=== PATIENT | female | born 1935 | race Caucasian/White ===

== ENCOUNTER → 2017-05-15 | Outpatient (CLI) | payer MEDICARE ==
[~2017-05-15] MED LIST: ACET325 PO; ADVIL 200 MG PO; ALLO100 PO; ASPI325 PO; ATOR40TA PO; CIPR500 PO; COLCHICINE0.6 MG; COLCHICINE0.6 MG PO; DIAZIDE; DIPH50; DIPH50 PO; DOCU100 PO; FAMO10 PO; Flagyl250 MG PO; GLIM2 PO; GLYB2.5 PO; HYDACE7.5; IBUP200 PO; LEVFLO500 PO; LOSA25; Lovastatin10 MG; MELO7.5; METO100; METO50 PO; Micro-K10 MEQ PO; Micro-K8 MEQ; OMEPRAZOLE MAGN20 MG PO; PROM25 PO; Percocet 5-3251 EACH PO; TAMS.4ER PO; TRAACE; TRAM50 PO; TRIHYD253A PO; ZOLP5 PO; ZOLP6.25; [UNRECOGNIZED DRUG - OTHER]
== END | disposition home or self-care (01) ==
LOC: LAB SHORT 17:04
DX: R30.9 Painful micturition, unspecified (principal)
CPT/HCPCS: 87077; 87086; 87186

== ENCOUNTER 2017-06-24 20:29 | Emergency (ER) | payer MEDICARE ==
[~2017-06-24] VITALS: Ht 160 cm; Wt 91.6 kg
[~2017-06-24 20:29] MED LIST changes: -ASPI325 PO; -ATOR40TA PO; -CIPR500 PO; -COLCHICINE0.6 MG PO; -DOCU100 PO; -Micro-K10 MEQ PO; -TAMS.4ER PO
[2017-06-24 21:51] LABS: BASOPHILS ABSOLUTE AUTO 0.06 K/mm3 (0.00-0.23); BASOPHILS PERCENT AUTO 1 % (0-2); EOSINOPHILS ABSOLUTE AUTO 0.18 K/mm3 (0.00-0.68); EOSINOPHILS PERCENT AUTO 2 % (0-6); Hematocrit 41.5 % (33.0-51.0); Hemoglobin 13.8 g/dL (11.5-16.0); IMMATURE GRAN ABSOLUTE AUTO 0.02 K/mm3 (0.00-0.10); IMMATURE GRAN PERCENT AUTO 0 % (0-1); LYMPHOCYTES ABSOLUTE AUTO 3.16 K/mm3 (0.84-5.20); LYMPHOCYTES PERCENT AUTO 32 % (21-46); MONOCYTES ABSOLUTE AUTO 0.81 K/mm3 (0.16-1.47); MONOCYTES PERCENT AUTO 8 % (4-13); Mean Corpuscular HGB 30.2 pg (26.0-34.0); Mean Corpuscular HGB Conc 33.3 g/dL (31.5-36.5); Mean Corpuscular Volume 91 fL (80-100); Mean Platelet Volume 11.2 fL (9.1-12.4); NEUTROPHILS ABSOLUTE AUTO 5.56 K/mm3 (1.96-9.15); NEUTROPHILS PERCENT AUTO 57 % (41-73); Platelet Count 267 K/mm3 (150-400); RDW Coefficient Variation 12.9 % (11.7-14.2); RDW Standard Deviation 42.8 fL (35.1-46.3); Red Blood Cell Count 4.57 M/mm3 (3.80-5.20); White Blood Cell Count 9.79 K/mm3 (4.00-11.30)
[2017-06-24 21:58] LABS: Source, Urine Catheter
[2017-06-24 22:08] LABS: Bilirubin, Urine Neg (Neg); Blood, Urine Neg (Neg); Glucose Qualitative, Urine Neg (Neg); Ketones, Urine Neg (Neg); Leukocyte Esterase, Urine Neg (Neg); Nitrite, Urine Neg (Neg); Protein, Urine Neg (Neg); Specific Gravity, Urine 1.015 (1.003-1.022); Urobilinogen, Urine NORM (Normal)
[2017-06-24 22:09] LABS: Albumin, Blood 3.4 g/dL (3.4-5.0); Albumin/Globulin Ratio 0.8 (0.8-1.8); Bilirubin, Total 0.4 mg/dL (0.1-1.0); Bun/Creatinine Ratio 14.6 (12.0-20.0); Calcium, Blood 8.8 mg/dL (8.5-10.1); Creatinine, Blood 0.96 mg/dL (0.40-1.00); Globulin, Blood 4.1 g/dL (2.2-4.0); Potassium, Blood 3.6 mmol/L (3.5-5.5); Total Protein, Blood 7.5 g/dL (6.4-8.2)
[2017-06-24 22:13] LABS: Appearance, Urine Clear (Clear); Color, Urine Yellow (P-Yellow)
[2017-06-25] MEDS ORDERED: COLCHICINE0.6 MG PO (17:20)
[2017-06-25] MEDS ORDERED: DIPH50 PO (17:21)
== END 2017-06-24 23:49 | disposition home or self-care (01) ==
LOC: ER 20:29
PROVIDERS: Emergency Medicine
DX: R51 Headache (principal); R42 Dizziness and giddiness; Z88.8 Allergy status to other drugs, medicaments and biological substances; Z79.899 Other long term (current) drug therapy; E11.9 Type 2 diabetes mellitus without complications; I48.91 Unspecified atrial fibrillation; Z85.3 Personal history of malignant neoplasm of breast
CPT/HCPCS: 80053; 81003; 85025; 93005; 93010; 96360; 99283; J7030; P9612

== ENCOUNTER 2017-06-25 10:48 | Inpatient (IN) | payer MEDICARE ==
[~2017-06-25] VITALS: Ht 165.1 cm; Wt 94.0 kg
[2017-06-25 11:44] LABS: Alanine Aminotransfer (ALT/SGP 18 U/L (12-78); Albumin, Blood 3.4 g/dL (3.4-5.0); Albumin/Globulin Ratio 0.8 (0.8-1.8); Alk Phos 72 U/L (50-136); Anion Gap 12 mmol/L (6-16); Aspartate Aminotrans (AST/SGOT 21 U/L (12-37); Bilirubin, Total 0.5 mg/dL (0.1-1.0); Blood Urea Nitrogen 13 mg/dL (8-24); Bun/Creatinine Ratio 18.8 (12.0-20.0); CO2, Blood 22 mmol/L (21-32); CPK Creatine Kinase 110 U/L (26-193); Calcium, Blood 8.7 mg/dL (8.5-10.1); Chloride, Blood 101 mmol/L (98-108); Creatinine, Blood 0.69 mg/dL (0.40-1.00); Glomerular Filtration Rate >60 (60-); Glucose, Blood 170 mg/dL (70-99); Potassium, Blood 3.3 mmol/L (3.5-5.5); Sodium, Blood 135 mmol/L (136-145); Total Protein, Blood 7.4 g/dL (6.4-8.2)
[2017-06-25] MEDS ORDERED: COLCHICINE0.6 MG PO (17:20)
[2017-06-25] MEDS ORDERED: DIPH50 PO (17:21)
[2017-06-25 17:35] LABS: Source, Urine Catheter
[2017-06-25 17:42] LABS: Bilirubin, Urine Neg (Neg); Blood, Urine 1+ (Neg); Glucose Qualitative, Urine Neg (Neg); Ketones, Urine Neg (Neg); Leukocyte Esterase, Urine Neg (Neg); Nitrite, Urine Neg (Neg); Protein, Urine Neg (Neg); Urobilinogen, Urine NORM (Normal)
[2017-06-25 18:14] LABS: Appearance, Urine Clear (Clear); Color, Urine Yellow (P-Yellow)
[2017-06-25 18:16] LABS: Bacteria Rare /hpf; Squamous Epithelial Cells Mod /hpf (Few); White Blood Cells, Urine Not Seen /hpf (0-5)
[2017-06-26 04:19] LABS: BASOPHILS ABSOLUTE AUTO 0.04 K/mm3 (0.00-0.23); BASOPHILS PERCENT AUTO 0 % (0-2); EOSINOPHILS ABSOLUTE AUTO 0.09 K/mm3 (0.00-0.68); EOSINOPHILS PERCENT AUTO 1 % (0-6); Hematocrit 38.8 % (33.0-51.0); Hemoglobin 12.7 g/dL (11.5-16.0); IMMATURE GRAN ABSOLUTE AUTO 0.02 K/mm3 (0.00-0.10); IMMATURE GRAN PERCENT AUTO 0 % (0-1); LYMPHOCYTES ABSOLUTE AUTO 2.91 K/mm3 (0.84-5.20); LYMPHOCYTES PERCENT AUTO 30 % (21-46); MONOCYTES ABSOLUTE AUTO 0.92 K/mm3 (0.16-1.47); MONOCYTES PERCENT AUTO 10 % (4-13); Mean Corpuscular HGB Conc 32.7 g/dL (31.5-36.5); Mean Corpuscular Volume 92 fL (80-100); Mean Platelet Volume 10.4 fL (9.1-12.4); NEUTROPHILS ABSOLUTE AUTO 5.64 K/mm3 (1.96-9.15); NEUTROPHILS PERCENT AUTO 59 % (41-73); Platelet Count 199 K/mm3 (150-400); RDW Coefficient Variation 13.2 % (11.7-14.2); RDW Standard Deviation 44.3 fL (35.1-46.3); Red Blood Cell Count 4.23 M/mm3 (3.80-5.20); White Blood Cell Count 9.62 K/mm3 (4.00-11.30)
[2017-06-26 04:36] LABS: Anion Gap 8 mmol/L (6-16); Blood Urea Nitrogen 12 mg/dL (8-24); Bun/Creatinine Ratio 15.4 (12.0-20.0); CO2, Blood 29 mmol/L (21-32); Calcium, Blood 8.5 mg/dL (8.5-10.1); Chloride, Blood 99 mmol/L (98-108); Creatinine, Blood 0.78 mg/dL (0.40-1.00); Glomerular Filtration Rate >60 (60-); Glucose, Blood 117 mg/dL (70-99); Magnesium, Blood 2.1 mg/dL (1.6-2.4); Potassium, Blood 3.6 mmol/L (3.5-5.5); Sodium, Blood 136 mmol/L (136-145)
[2017-06-28 05:22] LABS: BASOPHILS ABSOLUTE AUTO 0.04 K/mm3 (0.00-0.23); BASOPHILS PERCENT AUTO 0 % (0-2); EOSINOPHILS PERCENT AUTO 2 % (0-6); Hematocrit 38.7 % (33.0-51.0); Hemoglobin 12.6 g/dL (11.5-16.0); IMMATURE GRAN ABSOLUTE AUTO 0.04 K/mm3 (0.00-0.10); IMMATURE GRAN PERCENT AUTO 0 % (0-1); LYMPHOCYTES ABSOLUTE AUTO 2.18 K/mm3 (0.84-5.20); LYMPHOCYTES PERCENT AUTO 20 % (21-46); MONOCYTES PERCENT AUTO 9 % (4-13); Mean Corpuscular HGB 30.5 pg (26.0-34.0); Mean Corpuscular HGB Conc 32.6 g/dL (31.5-36.5); Mean Corpuscular Volume 94 fL (80-100); Mean Platelet Volume 11.1 fL (9.1-12.4); NEUTROPHILS ABSOLUTE AUTO 7.49 K/mm3 (1.96-9.15); NEUTROPHILS PERCENT AUTO 68 % (41-73); Platelet Count 192 K/mm3 (150-400); RDW Coefficient Variation 13.2 % (11.7-14.2); RDW Standard Deviation 45.6 fL (35.1-46.3); Red Blood Cell Count 4.13 M/mm3 (3.80-5.20); White Blood Cell Count 10.95 K/mm3 (4.00-11.30)
[2017-06-28 05:58] LABS: Alanine Aminotransfer (ALT/SGP 16 U/L (12-78); Albumin, Blood 2.9 g/dL (3.4-5.0); Albumin/Globulin Ratio 0.7 (0.8-1.8); Alk Phos 58 U/L (50-136); Anion Gap 8 mmol/L (6-16); Aspartate Aminotrans (AST/SGOT 13 U/L (12-37); Bilirubin, Total 0.8 mg/dL (0.1-1.0); Blood Urea Nitrogen 14 mg/dL (8-24); Bun/Creatinine Ratio 18.5 (12.0-20.0); CO2, Blood 29 mmol/L (21-32); Calcium, Blood 8.2 mg/dL (8.5-10.1); Chloride, Blood 98 mmol/L (98-108); Creatinine, Blood 0.76 mg/dL (0.40-1.00); Globulin, Blood 4.1 g/dL (2.2-4.0); Glomerular Filtration Rate >60 (60-); Glucose, Blood 116 mg/dL (70-99); Potassium, Blood 3.7 mmol/L (3.5-5.5); Sodium, Blood 135 mmol/L (136-145)
[2017-06-29 15:18] LABS: Source, Urine Clean Catch
[2017-06-29 15:27] LABS: Appearance, Urine Clear (Clear); Bilirubin, Urine Neg (Neg); Blood, Urine 1+ (Neg); Color, Urine Yellow (P-Yellow); Glucose Qualitative, Urine Neg (Neg); Ketones, Urine Neg (Neg); Leukocyte Esterase, Urine 3+ (Neg); Nitrite, Urine Neg (Neg); Protein, Urine Neg (Neg); Urobilinogen, Urine NORM (Normal)
[2017-06-29 15:34] LABS: Bacteria Mod /hpf; Red Blood Cells, Urine Not Seen /hpf (0-2); Squamous Epithelial Cells Mod /hpf (Few); White Blood Cells, Urine TNTC /hpf (0-5)
[2017-06-30 05:18] LABS: BASOPHILS ABSOLUTE AUTO 0.03 K/mm3 (0.00-0.23); BASOPHILS PERCENT AUTO 0 % (0-2); EOSINOPHILS ABSOLUTE AUTO 0.22 K/mm3 (0.00-0.68); EOSINOPHILS PERCENT AUTO 3 % (0-6); Hematocrit 37.3 % (33.0-51.0); Hemoglobin 12.2 g/dL (11.5-16.0); IMMATURE GRAN ABSOLUTE AUTO 0.02 K/mm3 (0.00-0.10); IMMATURE GRAN PERCENT AUTO 0 % (0-1); LYMPHOCYTES ABSOLUTE AUTO 1.75 K/mm3 (0.84-5.20); LYMPHOCYTES PERCENT AUTO 22 % (21-46); MONOCYTES PERCENT AUTO 9 % (4-13); Mean Corpuscular HGB 30.3 pg (26.0-34.0); Mean Corpuscular HGB Conc 32.7 g/dL (31.5-36.5); Mean Corpuscular Volume 93 fL (80-100); Mean Platelet Volume 11.4 fL (9.1-12.4); NEUTROPHILS ABSOLUTE AUTO 5.43 K/mm3 (1.96-9.15); NEUTROPHILS PERCENT AUTO 67 % (41-73); Platelet Count 208 K/mm3 (150-400); RDW Coefficient Variation 13.1 % (11.7-14.2); RDW Standard Deviation 43.8 fL (35.1-46.3); Red Blood Cell Count 4.03 M/mm3 (3.80-5.20); White Blood Cell Count 8.15 K/mm3 (4.00-11.30)
[2017-06-30 05:42] LABS: Anion Gap 8 mmol/L (6-16); Blood Urea Nitrogen 14 mg/dL (8-24); Bun/Creatinine Ratio 20.6 (12.0-20.0); CO2, Blood 28 mmol/L (21-32); Calcium, Blood 8.5 mg/dL (8.5-10.1); Chloride, Blood 102 mmol/L (98-108); Creatinine, Blood 0.68 mg/dL (0.40-1.00); Glomerular Filtration Rate >60 (60-); Glucose, Blood 115 mg/dL (70-99); Magnesium, Blood 2.4 mg/dL (1.6-2.4); Potassium, Blood 3.8 mmol/L (3.5-5.5); Sodium, Blood 138 mmol/L (136-145)
[2017-06-30] MEDS ORDERED: ASPI325 PO (15:32)
[2017-06-30] MEDS ORDERED: ATOR40TA PO (15:33)
[2017-06-30] MEDS ORDERED: CIPR500 PO (15:34)
[2017-06-30] MEDS ORDERED: DOCU100 PO (15:34)
[2017-06-30] MEDS ORDERED: TAMS.4ER PO (15:36)
[2017-06-30] MEDS ORDERED: Micro-K10 MEQ PO (15:36)
== END 2017-06-30 15:51 | DRG 65 ==
LOC: ER 10:48 → MEDS 14:21 → ENPENDDIS 06-30 11:00 → MEDS 06-30 15:51
PROVIDERS: Hospitalist; Internal Medicine
DX: I63.411 Cerebral infarction due to embolism of right middle cerebral artery (principal); G81.94 Hemiplegia, unspecified affecting left nondominant side; I48.91 Unspecified atrial fibrillation; E11.9 Type 2 diabetes mellitus without complications; I63.421 Cerebral infarction due to embolism of right anterior cerebral artery; I10 Essential (primary) hypertension; K21.9 Gastro-esophageal reflux disease without esophagitis; M10.9 Gout, unspecified; R33.9 Retention of urine, unspecified; Z85.3 Personal history of malignant neoplasm of breast; Z79.84 Long term (current) use of oral hypoglycemic drugs; Z79.899 Other long term (current) drug therapy; Z88.5 Allergy status to narcotic agent; Z88.8 Allergy status to other drugs, medicaments and biological substances; Z80.8 Family history of malignant neoplasm of other organs or systems
CPT/HCPCS: 36415; 70450; 70551; 72170; 80048; 80053; 81001; 82550; 82947; 83735; 85025; 87077; 87086; 87186; 92610; 93005; 93010; 93306; 93880; 96361; 96374; 97110; 97163; 97166; 97530; 99285; G8978; G8979; G8987; G8988; G8996; G8997; G8998; J1650; J3010; J7030; Q0163

== ENCOUNTER 2018-06-01 11:58 | Inpatient (IN) | payer MEDICARE ==
[~2018-06-01] VITALS: Ht 167.6 cm; Wt 78.1 kg
[~2018-06-01 11:58] MED LIST changes: +ASPI325 PO; +ATOR40TA PO; +CIPR500 PO; +COLCHICINE0.6 MG PO; +DOCU100 PO; +Lopressor 25 mg25 MG PO; -METO50 PO; +Micro-K10 MEQ PO; +TAMS.4ER PO
[2018-06-01 12:51] LABS: BASOPHILS ABSOLUTE AUTO 0.04 K/mm3 (0.00-0.23); BASOPHILS PERCENT AUTO 0 % (0-2); EOSINOPHILS ABSOLUTE AUTO 0.17 K/mm3 (0.00-0.68); EOSINOPHILS PERCENT AUTO 2 % (0-6); Hematocrit 35.9 % (33.0-51.0); Hemoglobin 11.8 g/dL (11.5-16.0); IMMATURE GRAN ABSOLUTE AUTO 0.04 K/mm3 (0.00-0.10); IMMATURE GRAN PERCENT AUTO 0 % (0-1); LYMPHOCYTES PERCENT AUTO 21 % (21-46); MONOCYTES ABSOLUTE AUTO 0.69 K/mm3 (0.16-1.47); MONOCYTES PERCENT AUTO 6 % (4-13); Mean Corpuscular HGB 34.3 pg (26.0-34.0); Mean Corpuscular HGB Conc 32.9 g/dL (31.5-36.5); Mean Corpuscular Volume 104 fL (80-100); Mean Platelet Volume 10.7 fL (9.1-12.4); NEUTROPHILS ABSOLUTE AUTO 7.79 K/mm3 (1.96-9.15); NEUTROPHILS PERCENT AUTO 71 % (41-73); Platelet Count 293 K/mm3 (150-400); RDW Coefficient Variation 12.8 % (11.7-14.2); RDW Standard Deviation 48.9 fL (35.1-46.3); Red Blood Cell Count 3.44 M/mm3 (3.80-5.20); White Blood Cell Count 11.03 K/mm3 (4.00-11.30)
[2018-06-01] MEDS ORDERED: PROB500 PO (13:05)
[2018-06-01 13:11] LABS: Alanine Aminotransfer (ALT/SGP 18 U/L (12-78); Albumin, Blood 3.3 g/dL (3.4-5.0); Albumin/Globulin Ratio 0.9 (0.8-1.8); Alk Phos 95 U/L (50-136); Anion Gap 11 mmol/L (6-16); Aspartate Aminotrans (AST/SGOT 15 U/L (12-37); Bilirubin, Total 0.5 mg/dL (0.1-1.0); Blood Urea Nitrogen 14 mg/dL (8-24); CO2, Blood 28 mmol/L (21-32); Calcium, Blood 8.9 mg/dL (8.5-10.1); Chloride, Blood 98 mmol/L (98-108); Creatinine, Blood 0.93 mg/dL (0.40-1.00); Globulin, Blood 3.8 g/dL (2.2-4.0); Glomerular Filtration Rate >60 (60-); Glucose, Blood 162 mg/dL (70-99); Potassium, Blood 3.4 mmol/L (3.5-5.5); Sodium, Blood 137 mmol/L (136-145); Total Protein, Blood 7.1 g/dL (6.4-8.2)
[2018-06-01 13:20] LABS: International Normalized Ratio 0.99; Prothrombin Time Results 10.5 Sec (9.7-11.5)
[2018-06-01 15:21] LABS: Source, Urine Clean Catch
[2018-06-01 15:24] LABS: Bilirubin, Urine Neg (Neg); Blood, Urine 1+ (Neg); Glucose Qualitative, Urine Neg (Neg); Ketones, Urine Neg (Neg); Leukocyte Esterase, Urine 2+ (Neg); Nitrite, Urine Neg (Neg); Protein, Urine Neg (Neg); Urobilinogen, Urine NORM (Normal)
[2018-06-01 15:41] LABS: Appearance, Urine Hazy (Clear); Color, Urine Yellow (P-Yellow)
[2018-06-01 15:42] LABS: White Blood Cells, Urine 25-50 /hpf (0-5)
[2018-06-01 15:43] LABS: Bacteria Many /hpf; Red Blood Cells, Urine Not Seen /hpf (0-2); Squamous Epithelial Cells Many /hpf (Few)
[2018-06-01] MEDS ORDERED: GABA100 PO (17:59)
[2018-06-01] MEDS ORDERED: CITA20 PO (18:00)
[2018-06-01] MEDS ORDERED: TRIM100 PO (18:01)
[2018-06-02 05:01] LABS: BASOPHILS ABSOLUTE AUTO 0.06 K/mm3 (0.00-0.23); BASOPHILS PERCENT AUTO 1 % (0-2); EOSINOPHILS ABSOLUTE AUTO 0.26 K/mm3 (0.00-0.68); EOSINOPHILS PERCENT AUTO 3 % (0-6); Hematocrit 32.4 % (33.0-51.0); Hemoglobin 10.6 g/dL (11.5-16.0); IMMATURE GRAN ABSOLUTE AUTO 0.03 K/mm3 (0.00-0.10); IMMATURE GRAN PERCENT AUTO 0 % (0-1); LYMPHOCYTES ABSOLUTE AUTO 2.86 K/mm3 (0.84-5.20); LYMPHOCYTES PERCENT AUTO 30 % (21-46); MONOCYTES ABSOLUTE AUTO 0.83 K/mm3 (0.16-1.47); MONOCYTES PERCENT AUTO 9 % (4-13); Mean Corpuscular HGB 33.5 pg (26.0-34.0); Mean Corpuscular HGB Conc 32.7 g/dL (31.5-36.5); Mean Corpuscular Volume 103 fL (80-100); Mean Platelet Volume 10.5 fL (9.1-12.4); NEUTROPHILS ABSOLUTE AUTO 5.39 K/mm3 (1.96-9.15); NEUTROPHILS PERCENT AUTO 57 % (41-73); Platelet Count 246 K/mm3 (150-400); RDW Coefficient Variation 12.6 % (11.7-14.2); RDW Standard Deviation 47.8 fL (35.1-46.3); Red Blood Cell Count 3.16 M/mm3 (3.80-5.20); White Blood Cell Count 9.43 K/mm3 (4.00-11.30)
[2018-06-02 05:26] LABS: Bun/Creatinine Ratio 15.3 (12.0-20.0); Calcium, Blood 8.4 mg/dL (8.5-10.1); Creatinine, Blood 0.98 mg/dL (0.40-1.00); Potassium, Blood 3.2 mmol/L (3.5-5.5)
[2018-06-02 12:22] LABS: Percent Saturation 24.4 % (15.0-50.0)
[2018-06-03 05:18] LABS: Hematocrit 31.9 % (33.0-51.0); Hemoglobin 10.4 g/dL (11.5-16.0)
[2018-06-03 05:44] LABS: Albumin, Blood 2.8 g/dL (3.4-5.0); Anion Gap 9 mmol/L (6-16); Blood Urea Nitrogen 12 mg/dL (8-24); Bun/Creatinine Ratio 14.4 (12.0-20.0); CO2, Blood 26 mmol/L (21-32); Calcium, Blood 8.3 mg/dL (8.5-10.1); Chloride, Blood 104 mmol/L (98-108); Creatinine, Blood 0.83 mg/dL (0.40-1.00); Glomerular Filtration Rate >60 (60-); Glucose, Blood 105 mg/dL (70-99); Phosphorus, Blood 3.5 mg/dL (2.5-4.9); Potassium, Blood 3.4 mmol/L (3.5-5.5); Sodium, Blood 139 mmol/L (136-145)
[2018-06-04] MEDS ORDERED: CIPR500 PO (09:32)
[2018-06-04] MEDS ORDERED: ASPERCREME TOP (09:32)
== END 2018-06-04 12:14 | disposition home or self-care (01) | DRG 312 ==
LOC: ER 11:58 → MEDS 16:48 → ENPENDDIS 06-04 10:11 → MEDS 06-04 12:14
PROVIDERS: Physician Assistant; ADMIT Internal Medicine
DX: I95.1 Orthostatic hypotension (principal); N39.0 Urinary tract infection, site not specified; G93.40 Encephalopathy, unspecified; I69.354 Hemiplegia and hemiparesis following cerebral infarction affecting left non-dominant side; E86.0 Dehydration; E11.9 Type 2 diabetes mellitus without complications; M25.511 Pain in right shoulder; E87.6 Hypokalemia; E78.5 Hyperlipidemia, unspecified; Z91.81 History of falling; B96.1 Klebsiella pneumoniae [K. pneumoniae] as the cause of diseases classified elsewhere; R31.9 Hematuria, unspecified; W19.XXXA Unspecified fall, initial encounter; M25.551 Pain in right hip; Z85.3 Personal history of malignant neoplasm of breast; I10 Essential (primary) hypertension; Z66 Do not resuscitate; I48.0 Paroxysmal atrial fibrillation
CPT/HCPCS: 36415; 70450; 70551; 73030; 73502; 80048; 80053; 80069; 81001; 82607; 82728; 82746; 82947; 83036; 83540; 83550; 83735; 85014; 85018; 85025; 85610; 85730; 87077; 87086; 87186; 93005; 93010; 93306; 97161; 97530; 99285-25; G8978; G8979; G8980; J0696; J1650; J3420; J7030

== ENCOUNTER 2018-06-07 04:18 | Emergency (ER) | payer MEDICARE ==
[~2018-06-07] VITALS: Ht 157.5 cm; Wt 72.6 kg
[~2018-06-07 04:18] MED LIST changes: +ASPERCREME TOP; +CITA20 PO; +GABA100 PO; +PROB500 PO; +TRIM100 PO
== END 2018-06-07 07:17 | disposition home or self-care (01) ==
LOC: ER 04:18
DX: R51 Headache (principal); I10 Essential (primary) hypertension; E11.9 Type 2 diabetes mellitus without complications; I48.91 Unspecified atrial fibrillation; E78.5 Hyperlipidemia, unspecified; Z91.018 Allergy to other foods; Z86.73 Personal history of transient ischemic attack (TIA), and cerebral infarction without residual deficits; Z88.8 Allergy status to other drugs, medicaments and biological substances; Z79.899 Other long term (current) drug therapy; Z79.82 Long term (current) use of aspirin
CPT/HCPCS: 36415; 70450; 96374; 96375; 99284-25; J1100; J1200; J2765

== ENCOUNTER 2018-06-26 18:19 | Inpatient (IN) | payer MEDICARE ==
[~2018-06-26] VITALS: Ht 160 cm; Wt 77.5 kg
[2018-06-26 19:46] LABS: BASOPHILS ABSOLUTE AUTO 0.04 K/mm3 (0.00-0.23); BASOPHILS PERCENT AUTO 0 % (0-2); EOSINOPHILS ABSOLUTE AUTO 0.33 K/mm3 (0.00-0.68); EOSINOPHILS PERCENT AUTO 3 % (0-6); Hematocrit 36.6 % (33.0-51.0); Hemoglobin 11.7 g/dL (11.5-16.0); IMMATURE GRAN ABSOLUTE AUTO 0.03 K/mm3 (0.00-0.10); IMMATURE GRAN PERCENT AUTO 0 % (0-1); LYMPHOCYTES ABSOLUTE AUTO 3.04 K/mm3 (0.84-5.20); LYMPHOCYTES PERCENT AUTO 32 % (21-46); MONOCYTES ABSOLUTE AUTO 0.73 K/mm3 (0.16-1.47); MONOCYTES PERCENT AUTO 8 % (4-13); Mean Corpuscular HGB 33.7 pg (26.0-34.0); Mean Corpuscular Volume 106 fL (80-100); Mean Platelet Volume 11.6 fL (9.1-12.4); NEUTROPHILS ABSOLUTE AUTO 5.47 K/mm3 (1.96-9.15); NEUTROPHILS PERCENT AUTO 57 % (41-73); Platelet Count 284 K/mm3 (150-400); RDW Coefficient Variation 12.8 % (11.7-14.2); RDW Standard Deviation 49.5 fL (35.1-46.3); Red Blood Cell Count 3.47 M/mm3 (3.80-5.20); White Blood Cell Count 9.64 K/mm3 (4.00-11.30)
[2018-06-26 19:51] LABS: Albumin, Blood 3.4 g/dL (3.4-5.0); Bilirubin, Total 0.2 mg/dL (0.1-1.0); Bun/Creatinine Ratio 15.5 (12.0-20.0); Calcium, Blood 8.6 mg/dL (8.5-10.1); Creatinine, Blood 0.97 mg/dL (0.40-1.00); Globulin, Blood 3.3 g/dL (2.2-4.0); Potassium, Blood 4.6 mmol/L (3.5-5.5); Total Protein, Blood 6.7 g/dL (6.4-8.2)
[2018-06-26 20:07] LABS: International Normalized Ratio 0.97; Prothrombin Time Results 10.3 Sec (9.7-11.5)
[2018-06-26 20:20] LABS: Source, Urine Catheter
[2018-06-26 20:24] LABS: Bilirubin, Urine Neg (Neg); Blood, Urine Neg (Neg); Glucose Qualitative, Urine Neg (Neg); Ketones, Urine Neg (Neg); Leukocyte Esterase, Urine 3+ (Neg); Nitrite, Urine Neg (Neg); Protein, Urine Neg (Neg); Urobilinogen, Urine NORM (Normal)
[2018-06-26 21:20] LABS: Appearance, Urine Hazy (Clear); Bacteria Many /hpf; Color, Urine Yellow (P-Yellow); Red Blood Cells, Urine Not Seen /hpf (0-2); Squamous Epithelial Cells Not Seen /hpf (Few); White Blood Cells, Urine 50-100 /hpf (0-5)
--- NOTE | 2018-06-27 | NUR ---
RECEIVED HAND OFF FROM Kristel ANDREWS RN USING SBAR. LYING IN LOW FOWLERS WITH EYES CLOSED. AAO X3, SPEARS, FOLLOWS ALL COMMANDS. ORIENTED TO ROOM, CALL SYSTEM, AND POC, VOICES UNDERSTANDING. RESPIRATIONS EVEN AND UNLABORED ON ROOM AIR. LUNG SOUNDS CLEAR BILATERALLY. ABDOMEN SOFT AND NONDISTENDED, BOWEL SOUNDS PRESNT IN ALL QUADS. LEFT AC 18G PIV IS PATENT, FLUSHING WITH EASE WHILE INFUSING NS AT 75ML/HR. LAIRD CATH DRAINING CLOUDY YELLOW URINE TO GRAVITY. LEFT LEG EXTENALLY ROTATED, GOOD DISTAL PULSES NOTED. SCD PLACED TO RLE. DENIES PAIN, DISCOMFORT, OR FURTHER NEEDS AT THIS TIME. SAFETY MEASURES IN PLACE. WILL CONTINUE TO MONITOR.
--- NOTE | 2018-06-27 00:10 | NUR ---
PT ARRIVED TO ROOM, ALERT AND DROWSY. PT VERIFIED, NAME AND . PT ORIENTED TO ROOM. PT IS UNABLE TO CONFIRM HEALTH HX AND HOME MEDS R/T DROWSINESS. IVF STARTED PER ORDERS. BED ALARM ON FOR SAFETY. REP GIVEN TO ONCOMING RN.
[2018-06-27 05:45] LABS: Hematocrit 35.3 % (33.0-51.0); Hemoglobin 11.2 g/dL (11.5-16.0); Mean Corpuscular HGB 33.1 pg (26.0-34.0); Mean Corpuscular HGB Conc 31.7 g/dL (31.5-36.5); Mean Corpuscular Volume 104 fL (80-100); Platelet Count 232 K/mm3 (150-400); RDW Coefficient Variation 12.8 % (11.7-14.2); RDW Standard Deviation 48.9 fL (35.1-46.3); Red Blood Cell Count 3.38 M/mm3 (3.80-5.20); White Blood Cell Count 11.87 K/mm3 (4.00-11.30)
[2018-06-27 06:14] LABS: Anion Gap 11 mmol/L (6-16); Blood Urea Nitrogen 17 mg/dL (8-24); Bun/Creatinine Ratio 23.3 (12.0-20.0); CO2, Blood 23 mmol/L (21-32); Calcium, Blood 8.8 mg/dL (8.5-10.1); Chloride, Blood 105 mmol/L (98-108); Creatinine, Blood 0.73 mg/dL (0.40-1.00); Glomerular Filtration Rate >60 (60-); Glucose, Blood 112 mg/dL (70-99); Potassium, Blood 4.2 mmol/L (3.5-5.5); Sodium, Blood 139 mmol/L (136-145)
--- NOTE | 2018-06-27 12:09 | NUR ---
PT RETURNED FROM OR/PACU, DENIES PAIN, DENIES N&V, RESTING COMFORTABLY, ALERT, PLEASANT & COOPERATIVE.
--- NOTE | 2018-06-27 16:17 | NUR ---
SHIFT SUMMARY PT ALERT, PLEASANT, COOPERATIVE, CONFUSED AT TIMES, REORIENTS EASILY. VSS. S/P L HIP NAILING, AQUACEL CDI, WBAT. SCDS/TEDS ON. LAIRD PATENT & DRAINING YELLOW URINE, STAT LOCK ON, OFF FLOOR. PAIN MANAGED PER EMAR. LEANN PO, DENIES N&V. CBG'S CNI. BIOX BEDSIDE. CALLED AND LM MESSAGE WITH [facility] FOR CONSULT FOR ANKLE BRACE. WILL CTM & TX PER EMAR UNTIL REPORT GIVEN TO ONCOMING SHAHNAZ RN.
--- NOTE | 2018-06-27 18:55 | NUR ---
RECVD REPORT FROM PREVIOUS SHIFT RN LORA, PT LYING IN BED, REMOVED NC O2, REMOVING O2 SENSOR, CONFUSED BUT PLEASANT AND REORIENTS WELL. CHANGED CONT BIOXX SENSOR TO TOE AND ENCOURAGED PT TO LEAVE O2 ON HER NOSE AND TAKE DEEP BREATHS. BED IN LOWEST POSITION, CALL LIGHT WITHIN REACH, BED RAILS UP X 2
--- NOTE | 2018-06-28 05:51 | NUR ---
SHIFT SUMMARY: VSS, NO ACUTE CHANGES. PT REMAINED SLIGHTLY CONFUSED AT TIMES R/T GENERAL ANESTHESIA AND PAIN MEDICATION, EASILY ORIENTED. PT TOLERATED PO INTAKE, LAIRD CATHETER REMOVED WNL THIS AM. PT APPEARED TO BE SLEEPING UPON NURSE ROUNDING, EASILY AWAKENED. REMAINED ON CONT BIOXX AND NC 2.5L WITH SPO2 >93% AND HR STABLE.
--- NOTE | 2018-06-28 19:27 | NUR ---
SHIFT SUMMARY PT ALERT, OCC CONFUSED, REORIENTS EASILY. PAIN MANAGED WITH 5 MG PERC. LEANN PO, DENIES N&V. SAT ON SIDE OF BED WITH PHYSICAL THERAPY, UNABLE TO TRANSFER TO CHAIR TODAY. PLAN IS FOR [facility] TO FIT PT FOR ANKLE BRACE; TRANSFER TO SNF. REPORT GIVEN TO LAUREN GRACE.
--- NOTE | 2018-06-29 04:31 | NUR ---
shift summary: vss, no acute changes. pt tolerated po intake with no n/v. pt reports pain control to the point that she is able to sleep. pt appears to be sleeping on rounding from approx [phone]. pt woken to reposition q2. pt provided with prophylactic mepilax on sacrum/coccyx on beginning assessment. pt's daughter visited at start of shift. pt remains confused as to situation, states the television is ppl at the window, attempts to get out of bed. pt is easily reoriented and is pleasant/cooperative. urine output >350 ml this shift, uses bedpain
--- NOTE | 2018-06-29 09:10 | NUR ---
06/29/18 0910 Hanane Burr VERIFICATIONS: EDIT CHART.
--- NOTE | 2018-06-29 17:40 | NUR ---
PATIENT D/C'D TO [facility] AT THIS TIME. REPORT CALLED TO GIOVANI MERLOS. PATIENT STANDS AND BEARS WEIGHT WELL. MEDICATED WITH PERCOCET ONE TAB PRIOR TO D/C.
== END 2018-06-29 17:37 | DRG 481 ==
LOC: ER 18:19 → SURS 20:47
PROVIDERS: Emergency Medicine; Nurse Practitioner Acute Care; Orthopaedic Surgery; ADMIT Internal Medicine
PROC: 0QS704Z Reposition Left Upper Femur with Internal Fixation Device, Open Approach (ICD-10-PCS; principal; 2018-06-27 09:30)
DX: S72.142A Displaced intertrochanteric fracture of left femur, initial encounter for closed fracture (principal); I69.954 Hemiplegia and hemiparesis following unspecified cerebrovascular disease affecting left non-dominant side; W19.XXXA Unspecified fall, initial encounter; E11.9 Type 2 diabetes mellitus without complications; D64.9 Anemia, unspecified; E78.5 Hyperlipidemia, unspecified; K21.9 Gastro-esophageal reflux disease without esophagitis; M10.9 Gout, unspecified; I48.0 Paroxysmal atrial fibrillation; I10 Essential (primary) hypertension; R29.6 Repeated falls; Z66 Do not resuscitate; Z87.440 Personal history of urinary (tract) infections; Z88.8 Allergy status to other drugs, medicaments and biological substances; Z91.018 Allergy to other foods; Z79.82 Long term (current) use of aspirin; Z79.899 Other long term (current) drug therapy
CPT/HCPCS: 36415; 51702; 70450; 71045; 73502; 80048; 80053; 81001; 82947; 85025; 85027; 85610; 85730; 87077; 87086; 87186; 93005; 93010; 94762; 96374-59; 96375-59; 96376-59; 97110; 97162; 97530; 99285-25; C1713; J0690; J0696; J1170; J1650; J2250; J2550; J3010; J7030

== ENCOUNTER → 2018-10-13 | Outpatient (CLI) | payer MEDICARE ==
[~2018-10-13] MED LIST changes: +CEFP200 PO
[2018-10-13 18:06] LABS: Bilirubin, Urine Neg (Neg); Blood, Urine 2+ (Neg); Glucose Qualitative, Urine Neg (Neg); Ketones, Urine Neg (Neg); Leukocyte Esterase, Urine 3+ (Neg); Nitrite, Urine Neg (Neg); Protein, Urine 2+ (Neg); Specific Gravity, Urine 1.015 (1.003-1.022); Urobilinogen, Urine NORM (Normal)
[2018-10-13 18:33] LABS: Appearance, Urine Cloudy (Clear); Color, Urine Yellow (P-Yellow)
[2018-10-13 18:35] LABS: White Blood Cells, Urine TNTC /hpf (0-5)
[2018-10-13 18:36] LABS: Bacteria Many /hpf; Squamous Epithelial Cells Few /hpf (Few)
== END | disposition home or self-care (01) ==
LOC: LAB 16:12 → LAB SHORT 16:12
PROVIDERS: Internal Medicine
DX: R30.0 Dysuria (principal)
CPT/HCPCS: 81001; 87077; 87086; 87186

== ENCOUNTER 2018-11-25 18:31 | Emergency (ER) | payer MEDICARE ==
[~2018-11-25] VITALS: Ht 160 cm; Wt 77.1 kg
[~2018-11-25 18:31] MED LIST changes: -CEFP200 PO
[2018-11-25 19:37] LABS: BASOPHILS ABSOLUTE AUTO 0.05 K/mm3 (0.00-0.23); BASOPHILS PERCENT AUTO 1 % (0-2); EOSINOPHILS ABSOLUTE AUTO 0.21 K/mm3 (0.00-0.68); EOSINOPHILS PERCENT AUTO 3 % (0-6); Hematocrit 34.6 % (33.0-51.0); IMMATURE GRAN ABSOLUTE AUTO 0.02 K/mm3 (0.00-0.10); IMMATURE GRAN PERCENT AUTO 0 % (0-1); LYMPHOCYTES ABSOLUTE AUTO 2.44 K/mm3 (0.84-5.20); LYMPHOCYTES PERCENT AUTO 30 % (21-46); MONOCYTES ABSOLUTE AUTO 0.65 K/mm3 (0.16-1.47); MONOCYTES PERCENT AUTO 8 % (4-13); Mean Corpuscular HGB 31.1 pg (26.0-34.0); Mean Corpuscular HGB Conc 31.8 g/dL (31.5-36.5); Mean Corpuscular Volume 98 fL (80-100); Mean Platelet Volume 10.9 fL (9.1-12.4); NEUTROPHILS ABSOLUTE AUTO 4.76 K/mm3 (1.96-9.15); NEUTROPHILS PERCENT AUTO 59 % (41-73); Platelet Count 230 K/mm3 (150-400); RDW Coefficient Variation 14.2 % (11.7-14.2); RDW Standard Deviation 51.3 fL (35.1-46.3); Red Blood Cell Count 3.54 M/mm3 (3.80-5.20); White Blood Cell Count 8.13 K/mm3 (4.00-11.30)
[2018-11-25 19:45] LABS: Source, Urine Voided
[2018-11-25 19:51] LABS: Bilirubin, Urine Neg (Neg); Blood, Urine 2+ (Neg); Glucose Qualitative, Urine Neg (Neg); Ketones, Urine Neg (Neg); Leukocyte Esterase, Urine 3+ (Neg); Nitrite, Urine Pos (Neg); Protein, Urine 2+ (Neg); Urobilinogen, Urine NORM (Normal)
[2018-11-25 20:00] LABS: Alanine Aminotransfer (ALT/SGP 19 U/L (12-78); Albumin, Blood 3.2 g/dL (3.4-5.0); Albumin/Globulin Ratio 1.1 (0.8-1.8); Alk Phos 96 U/L (50-136); Anion Gap 6 mmol/L (6-16); Aspartate Aminotrans (AST/SGOT 16 U/L (12-37); Bilirubin, Total 0.3 mg/dL (0.1-1.0); Blood Urea Nitrogen 15 mg/dL (8-24); Bun/Creatinine Ratio 20.6 (12.0-20.0); CO2, Blood 28 mmol/L (21-32); Calcium, Blood 8.8 mg/dL (8.5-10.1); Chloride, Blood 105 mmol/L (98-108); Creatinine, Blood 0.73 mg/dL (0.40-1.00); Glomerular Filtration Rate >60 (60-); Glucose, Blood 90 mg/dL (70-99); Potassium, Blood 3.7 mmol/L (3.5-5.5); Sodium, Blood 139 mmol/L (136-145); Total Protein, Blood 6.2 g/dL (6.4-8.2)
[2018-11-25 20:08] LABS: Appearance, Urine Cloudy (Clear); Bacteria Many /hpf; Color, Urine Yellow (P-Yellow); Red Blood Cells, Urine Rare /hpf (0-2); Squamous Epithelial Cells Few /hpf (Few); White Blood Cells, Urine TNTC /hpf (0-5)
[2018-11-25] MEDS ORDERED: CEFP200 PO (22:14)
== END 2018-11-25 22:30 | disposition home or self-care (01) ==
LOC: ER 18:31
PROVIDERS: Emergency Medicine
DX: S09.90XA Unspecified injury of head, initial encounter (principal); N39.0 Urinary tract infection, site not specified; E87.8 Other disorders of electrolyte and fluid balance, not elsewhere classified; W01.0XXA Fall on same level from slipping, tripping and stumbling without subsequent striking against object, initial encounter; Z91.018 Allergy to other foods; Z88.8 Allergy status to other drugs, medicaments and biological substances; Z79.899 Other long term (current) drug therapy; Z79.82 Long term (current) use of aspirin; E11.9 Type 2 diabetes mellitus without complications; I48.91 Unspecified atrial fibrillation; Z86.73 Personal history of transient ischemic attack (TIA), and cerebral infarction without residual deficits
CPT/HCPCS: 70450; 80053; 81001; 85025; 87086; 93005; 93010; 96365; 99284-25; J0696; J7120

== ENCOUNTER → 2019-01-12 | Outpatient (CLI) | payer MEDICARE ==
[~2019-01-12] MED LIST changes: +CEFP200 PO
[2019-01-12 13:05] LABS: Source, Urine Clean Catch
[2019-01-12 18:21] LABS: Bilirubin, Urine Neg (Neg); Blood, Urine 1+ (Neg); Glucose Qualitative, Urine Neg (Neg); Ketones, Urine Neg (Neg); Leukocyte Esterase, Urine 3+ (Neg); Nitrite, Urine Pos (Neg); Protein, Urine Neg (Neg); Specific Gravity, Urine 1.015 (1.003-1.022); Urobilinogen, Urine NORM (Normal)
[2019-01-12 18:28] LABS: Appearance, Urine Hazy (Clear); Color, Urine Yellow (P-Yellow)
[2019-01-12 18:30] LABS: Red Blood Cells, Urine 0-2 /hpf (0-2); Squamous Epithelial Cells Few /hpf (Few); White Blood Cells, Urine TNTC /hpf (0-5)
[2019-01-12 18:31] LABS: Bacteria Many /hpf
== END | disposition home or self-care (01) ==
LOC: LAB SHORT 13:03 → LAB 13:03
PROVIDERS: Internal Medicine
DX: R30.0 Dysuria (principal)
CPT/HCPCS: 81001; 87077; 87086; 87186

== ENCOUNTER → 2019-01-28 | Outpatient (CLI) | payer MEDICARE ==
[2019-01-28 15:46] LABS: Source, Urine Clean Catch
[2019-01-28 18:11] LABS: Bilirubin, Urine Neg (Neg); Blood, Urine 1+ (Neg); Glucose Qualitative, Urine Neg (Neg); Ketones, Urine Neg (Neg); Leukocyte Esterase, Urine 3+ (Neg); Nitrite, Urine Neg (Neg); Protein, Urine Neg (Neg); Urobilinogen, Urine NORM (Normal)
[2019-01-28 18:36] LABS: Appearance, Urine Hazy (Clear); Color, Urine Yellow (P-Yellow)
[2019-01-28 18:37] LABS: Bacteria Many /hpf; Squamous Epithelial Cells Few /hpf (Few); Transitional Epithelial Cells Few /hpf (0-Rare); White Blood Cells, Urine TNTC /hpf (0-5)
[2019-01-28 18:38] LABS: Renal Epithelial Rare /hpf (0-Rare)
== END ==
LOC: LAB SHORT 15:44 → LAB 15:44
PROVIDERS: Internal Medicine
DX: R30.0 Dysuria (principal)
CPT/HCPCS: 81001; 87077; 87086; 87186

== ENCOUNTER → 2019-03-01 | Outpatient (CLI) | payer MEDICARE ==
[2019-03-01 15:28] LABS: Source, Urine Clean Catch
[2019-03-01 18:47] LABS: Appearance, Urine Hazy (Clear); Bilirubin, Urine Neg (Neg); Blood, Urine 2+ (Neg); Color, Urine Yellow (P-Yellow); Glucose Qualitative, Urine Neg (Neg); Ketones, Urine Neg (Neg); Leukocyte Esterase, Urine 3+ (Neg); Nitrite, Urine Pos (Neg); Protein, Urine 2+ (Neg); Specific Gravity, Urine 1.015 (1.003-1.022); Urobilinogen, Urine NORM (Normal)
[2019-03-01 18:49] LABS: White Blood Cells, Urine TNTC /hpf (0-5)
[2019-03-01 18:50] LABS: Bacteria Many /hpf; Squamous Epithelial Cells Few /hpf (Few)
== END ==
LOC: LAB SHORT 15:26 → LAB 15:26 → LAB FUT 02-25 14:55
PROVIDERS: Internal Medicine
DX: R30.0 Dysuria (principal); R41.0 Disorientation, unspecified
CPT/HCPCS: 81001; 87077; 87086; 87186

== ENCOUNTER 2019-04-13 01:04 | Inpatient (IN) | payer MEDICARE ==
[~2019-04-13] VITALS: Ht 160 cm; Wt 80.0 kg
[2019-04-13 03:05] LABS: BASOPHILS ABSOLUTE AUTO 0.03 K/mm3 (0.00-0.23); BASOPHILS PERCENT AUTO 0 % (0-2); EOSINOPHILS ABSOLUTE AUTO 0.08 K/mm3 (0.00-0.68); EOSINOPHILS PERCENT AUTO 1 % (0-6); Hematocrit 32.3 % (33.0-51.0); Hemoglobin 10.3 g/dL (11.5-16.0); IMMATURE GRAN ABSOLUTE AUTO 0.06 K/mm3 (0.00-0.10); IMMATURE GRAN PERCENT AUTO 0 % (0-1); LYMPHOCYTES ABSOLUTE AUTO 1.47 K/mm3 (0.84-5.20); LYMPHOCYTES PERCENT AUTO 10 % (21-46); MONOCYTES ABSOLUTE AUTO 0.61 K/mm3 (0.16-1.47); MONOCYTES PERCENT AUTO 4 % (4-13); Mean Corpuscular HGB 32.3 pg (26.0-34.0); Mean Corpuscular HGB Conc 31.9 g/dL (31.5-36.5); Mean Corpuscular Volume 101 fL (80-100); Mean Platelet Volume 10.2 fL (9.1-12.4); NEUTROPHILS ABSOLUTE AUTO 11.94 K/mm3 (1.96-9.15); NEUTROPHILS PERCENT AUTO 84 % (41-73); Platelet Count 254 K/mm3 (150-400); RDW Coefficient Variation 12.6 % (11.7-14.2); RDW Standard Deviation 46.5 fL (35.1-46.3); Red Blood Cell Count 3.19 M/mm3 (3.80-5.20); White Blood Cell Count 14.19 K/mm3 (4.00-11.30)
[2019-04-13 03:23] LABS: Alanine Aminotransfer (ALT/SGP 15 U/L (12-78); Albumin/Globulin Ratio 0.9 (0.8-1.8); Alk Phos 99 U/L (50-136); Anion Gap 5 mmol/L (6-16); Aspartate Aminotrans (AST/SGOT 10 U/L (12-37); Bilirubin, Total 0.5 mg/dL (0.1-1.0); Blood Urea Nitrogen 20 mg/dL (8-24); Bun/Creatinine Ratio 27.1 (12.0-20.0); CO2, Blood 29 mmol/L (21-32); Calcium, Blood 8.5 mg/dL (8.5-10.1); Chloride, Blood 106 mmol/L (98-108); Creatinine, Blood 0.74 mg/dL (0.40-1.00); Globulin, Blood 3.4 g/dL (2.2-4.0); Glomerular Filtration Rate >60 (60-); Glucose, Blood 138 mg/dL (70-99); Potassium, Blood 4.1 mmol/L (3.5-5.5); Sodium, Blood 140 mmol/L (136-145); Total Protein, Blood 6.4 g/dL (6.4-8.2)
--- NOTE | 2019-04-13 03:50 | NUR ---
0350: PT ARRIVES TO ROOM 220 VIA BED FROM ER AND IS SLIDE SHEET TRANSFERRED TO BED; TOW. PT IS A&O X3, RATES LLE PAIN 4/10 AND INCREASING, MOVES WELL IN BED. EXTRA LINENS REMOVED AFTER BED CORTES USE AND PT PLACED IN PT GOWN. PT ORIENTED TO ROOM, BED, CALL SYSTEM AND VERBALIZES UNDERSTANDING. CALL LIGHT PLACED IN REACH.
--- NOTE | 2019-04-13 06:40 | NUR ---
0640: PT'S DAUGHTER SONYA IN TO VISIT AND ASK THAT DR. Guerita UP CALL HER AFTER ROUNDING ON PT. PT MAINTAINS NPO STATUS AND CONTINUES TO MOVE WELL IN BED FOR BEDPAN USE AND VOIDING. VSS, AFEBRILE, ROOM AIR. PAIN CONTROLLED WITH 25 MCG OF FENTANYL. AWAIT ORTHO ROUNDING.
[2019-04-13 13:31] LABS: Percent Saturation 18.5 % (15.0-50.0)
--- NOTE | 2019-04-13 14:04 | NUR ---
"DAY SURGERY RN | PRATEEK COMPLETE PER ORDER"
--- NOTE | 2019-04-13 14:43 | NUR ---
"DAY SURGERY RN | TO OR BOTH DOCTORS AND CIRCUALTOR HAVE SEEN PATIENT. REPORT TO KANDICE GRACE. NO ISSUES. FAMILY AT BEDSIDE."
[2019-04-13 15:49] LABS: Source, Urine Clean Catch
[2019-04-13 16:04] LABS: Bilirubin, Urine Neg (Neg); Blood, Urine 4+ (Neg); Glucose Qualitative, Urine Neg (Neg); Ketones, Urine 1+ (Neg); Leukocyte Esterase, Urine 3+ (Neg); Nitrite, Urine Pos (Neg); Protein, Urine 3+ (Neg); Urobilinogen, Urine 1+ (Normal)
[2019-04-13 16:43] LABS: Appearance, Urine Turbid (Clear); Color, Urine Yellow (P-Yellow)
[2019-04-13 16:44] LABS: Bacteria Many /hpf; Mucus Mod (0-Heavy); Squamous Epithelial Cells Few /hpf (Few); White Blood Cells, Urine TNTC /hpf (0-5)
--- NOTE | 2019-04-13 17:54 | NUR ---
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 She was repetaive at times and thought I was someone from her past even after being corrected about it. We had a great conversation about her pride in her children and love for her . She smiles easily and appeared to understand why she is hospitalized. I provided prayer for a successful surgery and recovery. No family present at estrada of visit, but met with them in surgery waiting area. I will remain available.
--- NOTE | 2019-04-13 19:30 | NUR ---
SHIFT SUMMARY PT WAS PLEASANT, COOOPERATIVE WITH OCC CONFUSION. PAIN WAS MANAGED WITH 25 MCGS FENTANYL, PT LEANN WELL. NPO. WENT TO SURGERY AT APPROX 1345. REPORT GIVEN TO GENEVIEVE GRACE.
--- NOTE | 2019-04-14 03:18 | NUR ---
OFFERED SNACK AGAIN AND GAVE JUICE THIS AM.
[2019-04-14 04:49] LABS: BASOPHILS ABSOLUTE AUTO 0.02 K/mm3 (0.00-0.23); BASOPHILS PERCENT AUTO 0 % (0-2); EOSINOPHILS PERCENT AUTO 0 % (0-6); Hemoglobin 7.2 g/dL (11.5-16.0); IMMATURE GRAN ABSOLUTE AUTO 0.07 K/mm3 (0.00-0.10); IMMATURE GRAN PERCENT AUTO 0 % (0-1); LYMPHOCYTES ABSOLUTE AUTO 1.12 K/mm3 (0.84-5.20); LYMPHOCYTES PERCENT AUTO 7 % (21-46); MONOCYTES ABSOLUTE AUTO 0.98 K/mm3 (0.16-1.47); MONOCYTES PERCENT AUTO 6 % (4-13); Mean Corpuscular HGB 31.6 pg (26.0-34.0); Mean Corpuscular HGB Conc 31.3 g/dL (31.5-36.5); Mean Corpuscular Volume 101 fL (80-100); Mean Platelet Volume 10.8 fL (9.1-12.4); NEUTROPHILS ABSOLUTE AUTO 13.59 K/mm3 (1.96-9.15); NEUTROPHILS PERCENT AUTO 86 % (41-73); Platelet Count 200 K/mm3 (150-400); RDW Coefficient Variation 12.9 % (11.7-14.2); RDW Standard Deviation 46.5 fL (35.1-46.3); Red Blood Cell Count 2.28 M/mm3 (3.80-5.20); White Blood Cell Count 15.78 K/mm3 (4.00-11.30)
--- NOTE | 2019-04-14 04:55 | NUR ---
SHIFT SUMMARY PATIENT RETURNED FROM OR AT THE BEGINNING OF THE SHIFT. SHE WAS CONFUSED AND DID NOT REALIZE THAT SHE WAS AT THE HOSPITAL OR THAT SHE HAD JUST HAD SURGERY. SHE DID NOT HAVE ANY PAIN UPON RETURNING TO HER ROOM. HER LT LEG HAS A KNEE IMOBILIZER ON IT. SHE IS ABLE TO MOVE HER TOES AND FEEL SENSATION ON HER FOOT. AFTER SLEEPING MOST OF THE NIGHT, THIS AM SHE IS ALERT AND KNOWS THAT SHE HAD SURGERY AND IN IS THE HOSPITAL. NO COMPLAINTS OF PAIN. CATHERTER IS DRAINING CLEAR YELLOW URINE. ICE PACK ON UPPER THIGH T/O NIGHT.
[2019-04-14 05:11] LABS: Anion Gap 7 mmol/L (6-16); Blood Urea Nitrogen 25 mg/dL (8-24); Bun/Creatinine Ratio 32.9 (12.0-20.0); CO2, Blood 26 mmol/L (21-32); Calcium, Blood 8.2 mg/dL (8.5-10.1); Chloride, Blood 105 mmol/L (98-108); Creatinine, Blood 0.76 mg/dL (0.40-1.00); Glomerular Filtration Rate >60 (60-); Glucose, Blood 151 mg/dL (70-99); Potassium, Blood 4.2 mmol/L (3.5-5.5); Sodium, Blood 138 mmol/L (136-145)
[2019-04-14 05:30] LABS: Thyroid Stimulating Hormone 0.474 uIU/mL (0.360-4.800)
--- NOTE | 2019-04-14 17:29 | NUR ---
SUMMARY RECEIVED 2 U PRBC'S. PATIENT MEDICATED X1 WITH TYLENOL AND REPORTS GOOD PAIN CONTROL. PATIENT SLIGHTLY FORGETFUL BUT USES CALL LIGHT APPROPRIATELY. BED ALARM IN PLACE. FAMILY IN TO VISIT THROUGHOUT DAY
--- NOTE | 2019-04-14 17:39 | NUR ---
Mrs. Vaz was in good spirits. [birth year] birthday today. She feels surgery was successful and she remains hopeful for recovery. Provided prayer for continued healing. [employer] services will remain available.
[2019-04-14 18:57] LABS: Hematocrit 28.7 % (33.0-51.0); Hemoglobin 9.2 g/dL (11.5-16.0); Mean Corpuscular HGB 31.7 pg (26.0-34.0); Mean Corpuscular HGB Conc 32.1 g/dL (31.5-36.5); Mean Corpuscular Volume 99 fL (80-100); Mean Platelet Volume 10.7 fL (9.1-12.4); Platelet Count 175 K/mm3 (150-400); RDW Standard Deviation 50.9 fL (35.1-46.3); White Blood Cell Count 16.23 K/mm3 (4.00-11.30)
--- NOTE | 2019-04-15 04:09 | NUR ---
SHIFT SUMMARY POD 2 LEFT FEMUR REPAIR. PT HAS BEEN ALERT AND ORIENTED, SOME CONFUSION WHILE WATCHING TV. CHANGED TO MUSIC CHANNEL AND PATIENT ABLE TO FALL ASLEEP. IMMOBILIZER IN PLACE ON LEG. SENSATION INTACT IN SURGICAL LEG. PT MEDICATED FOR PAIN X2 DURING SHIFT. PT CALLING APPROPRIATLY FOR THE BED PAIN AND VOIDING. REPOSITIONING IN BED WITH SOME ASSISTANCE DURING THE NIGHT.
[2019-04-15 05:01] LABS: BASOPHILS ABSOLUTE AUTO 0.04 K/mm3 (0.00-0.23); BASOPHILS PERCENT AUTO 0 % (0-2); EOSINOPHILS ABSOLUTE AUTO 0.03 K/mm3 (0.00-0.68); EOSINOPHILS PERCENT AUTO 0 % (0-6); Hematocrit 26.7 % (33.0-51.0); Hemoglobin 8.7 g/dL (11.5-16.0); IMMATURE GRAN ABSOLUTE AUTO 0.05 K/mm3 (0.00-0.10); IMMATURE GRAN PERCENT AUTO 0 % (0-1); LYMPHOCYTES ABSOLUTE AUTO 2.99 K/mm3 (0.84-5.20); LYMPHOCYTES PERCENT AUTO 25 % (21-46); MONOCYTES ABSOLUTE AUTO 1.38 K/mm3 (0.16-1.47); MONOCYTES PERCENT AUTO 12 % (4-13); Mean Corpuscular HGB Conc 32.6 g/dL (31.5-36.5); Mean Corpuscular Volume 98 fL (80-100); Mean Platelet Volume 11.1 fL (9.1-12.4); NEUTROPHILS ABSOLUTE AUTO 7.33 K/mm3 (1.96-9.15); NEUTROPHILS PERCENT AUTO 62 % (41-73); Platelet Count 158 K/mm3 (150-400); RDW Standard Deviation 50.3 fL (35.1-46.3); Red Blood Cell Count 2.72 M/mm3 (3.80-5.20); White Blood Cell Count 11.82 K/mm3 (4.00-11.30)
[2019-04-15 05:35] LABS: Anion Gap 6 mmol/L (6-16); Blood Urea Nitrogen 25 mg/dL (8-24); Bun/Creatinine Ratio 30.2 (12.0-20.0); CO2, Blood 27 mmol/L (21-32); Calcium, Blood 8.1 mg/dL (8.5-10.1); Chloride, Blood 106 mmol/L (98-108); Creatinine, Blood 0.83 mg/dL (0.40-1.00); Glomerular Filtration Rate >60 (60-); Glucose, Blood 96 mg/dL (70-99); Potassium, Blood 3.8 mmol/L (3.5-5.5); Sodium, Blood 139 mmol/L (136-145)
--- NOTE | 2019-04-15 13:57 | NUR ---
PT A&OX2-3, CONFUSION, REORIENTS EASILY, PLEASANT & COOPERATIVE WITH CARE, USES CALL LIGHT APPROPRIATELY. PAIN MANAGED WITH 5 MG NORCO. LEANN PO, DENIES N&V. VOIDING WELL; USES BEDPAN, ROLLS WELL; BSC W/ 3 PP STAND/TRANSFER. STAND/TRANSFER WITH 3 PP/FWW/GB; VERY WEAK. PLAN IS FOR SNF DC. WILL REPORT TO NEXT RN.
--- NOTE | 2019-04-15 17:14 | NUR ---
SUMMARY PT RESTING IN BED, DENIES ANY PAIN SINCE ASSUMED CARE AT 1530 TODAY, OOB TO BSC WITH 2-3 PERSON ASSIST, CANCELLED DC TO SNF TODAY DAUGHTER SONYA DOESN'T AGREE WITH DC PLAN- SEE SERENE ODEN,FOLDER INSPECTOR'S NOTE, DR. UP NOTIFIED, IN TO SEE PATIENT THIS EVENING.
--- NOTE | 2019-04-16 04:14 | NUR ---
SHIFT SUMMARY POD 2 LEFT FEMUR REPAIR. PT AAOX3 TODAY. COULDNT TELL THE DATE. VSS. IMMOBILIZER IN PLACE, PATIENT WIGGLES TOES AND REPORTS SENSATION. ELAINE WRAP IN PLACE OVER SURGICAL SITE. PT CALLING APPROPRIATLY FOR THE BED CORTES. INC/ CON OF BLADDER. MEDICATED FOR PAIN PER EMAR DURING SHIFT. TYLENOL GIVEN X1. PLAN IS TO DISCHARGE TO SNF TODAY.
--- NOTE | 2019-04-16 10:50 | NUR ---
04/16/19 1050 Hanane Burr VERIFICATIONS: EDIT CHART.
--- NOTE | 2019-04-16 13:11 | NUR ---
REPORT CALLED TO GIOVANI OLSON AT [facility] AT THIS TIME. STAFF HERE TO TUB CHUCKER PATIENT FOR GURNEY TRANSPORT. NO C/O AT THIS TIME.
== END 2019-04-16 13:00 | DRG 481 ==
LOC: ER 01:04 → SURS 03:48
PROVIDERS: Emergency Medicine; Family Medicine; Orthopaedic Surgery; ADMIT Family Medicine
PROC: 30233N1 Transfusion of Nonautologous Red Blood Cells into Peripheral Vein, Percutaneous Approach (ICD-10-PCS; 2019-04-13)
PROC: 0QSC04Z Reposition Left Lower Femur with Internal Fixation Device, Open Approach (ICD-10-PCS; principal; 2019-04-13 15:00)
DX: S72.402A Unspecified fracture of lower end of left femur, initial encounter for closed fracture (principal); M97.02XA Periprosthetic fracture around internal prosthetic left hip joint, initial encounter; I69.354 Hemiplegia and hemiparesis following cerebral infarction affecting left non-dominant side; N39.0 Urinary tract infection, site not specified; D63.8 Anemia in other chronic diseases classified elsewhere; W19.XXXA Unspecified fall, initial encounter; I48.91 Unspecified atrial fibrillation; E78.5 Hyperlipidemia, unspecified; F32.9 Major depressive disorder, single episode, unspecified; E11.9 Type 2 diabetes mellitus without complications; M10.9 Gout, unspecified; K21.9 Gastro-esophageal reflux disease without esophagitis; F03.90 Unspecified dementia, unspecified severity, without behavioral disturbance, psychotic disturbance, mood disturbance, and anxiety; Z85.3 Personal history of malignant neoplasm of breast; D50.9 Iron deficiency anemia, unspecified
CPT/HCPCS: 36415; 36430; 71045; 73502; 73560-LT; 73700; 80048; 80053; 81001; 82607; 82728; 82746; 82947; 83540; 83550; 84443; 85025; 85027; 86850; 86900; 86901; 86923; 87077; 87086; 87186; 93005; 93010; 96374; 97110; 97162; 97166; 97530; 99285-25; A9270; C1713; J0171; J0690; J0735; J1100; J1644; J1885; J1940; J2250; J2405; J2704; J2795; J3010; J7030; J7050; J7120; P9016